=== PATIENT | male | born 1945 | race Caucasian/White ===

== ENCOUNTER → 2018-01-31 | Outpatient (CLI) | payer OTHER, MEDICARE ==
[2018-01-31 15:52] LABS: BASO % 0.2 %; BASO ABS # 0.02 K/uL (0-0.2); EOS % 2.3 %; HEMATOCRIT 44.7 % (42-52); HEMOGLOBIN 14.3 g/dL (14.0-18.0); IG# 0.01 K/uL (0.00-0.02); LYMPH ABS # 1.85 K/uL (1.2-3.4); MEAN CORPUSCULAR HEMOGLOBIN 28.5 pg (25-34); MEAN PLATELET VOLUME 12.4 fL (7.4-10.4); MONO % 5.4 %; MONO ABS # 0.48 K/uL (0.11-0.59); NEUT ABS # 6.25 K/uL (1.4-6.5); PLATELET COUNT 169 K/uL (130-400); RED CELL DISTRIBUTION WIDTH CV 13.3 % (11.5-14.5); RED CELL DISTRIBUTION WIDTH SD 43.3 fL (36.4-46.3); WHITE BLOOD COUNT 8.81 K/uL (4.8-10.8)
[2018-01-31 15:58] LABS: INR 1.1 (0.9-1.1); PTT PATIENT 26.9 SECONDS (21.0-31.0)
--- NOTE | 2018-01-31 16:04 | DIAGNOSTIC IMAGING REPORT ---
CHEST 2 VIEWS ROUTINE HISTORY: 72 years-old Male PRE-OP TESTING preoperative exam. No acute chest complaints. COMPARISON: None available TECHNIQUE: PA and lateral views of the chest FINDINGS: Cardiac silhouette is mildly enlarged. Moderate hiatal hernia. No pneumothorax, pleural effusion, focal airspace consolidation or overt pulmonary edema. Degenerative changes are seen within the shoulders and spine. IMPRESSION: 1. Cardiomegaly without acute process. 2. Moderate hiatal hernia. The above report was generated using voice recognition software. It may contain grammatical, syntax or spelling errors. Electronically signed by: Addy Ibanez M.D. 01/31/2018 4:03 PM Dictated Date/Time: 01/31/2018 4:02 PM
[2018-01-31 16:09] LABS: ALBUMIN 3.9 gm/dl (3.4-5.0); BLOOD UREA NITROGEN 22 mg/dl (7-18); CALCIUM 9.2 mg/dl (8.5-10.1); CARBON DIOXIDE 29 mmol/L (21-32); CREATININE 1.17 mg/dl (0.60-1.40); GLUCOSE 138 mg/dl (70-99); SODIUM 139 mmol/L (136-145)
[2018-02-01 07:47] LABS: HEMOGLOBIN A1C 5.7 % (4.5-5.6)
== END | disposition home or self-care (01) ==
LOC: C.CPL 15:06
PROVIDERS: ATTEND Orthopaedic Surgery
DX: Z01.810 Encounter for preprocedural cardiovascular examination (principal); Z01.811 Encounter for preprocedural respiratory examination; Z01.812 Encounter for preprocedural laboratory examination; I51.7 Cardiomegaly; K44.9 Diaphragmatic hernia without obstruction or gangrene

== ENCOUNTER 2018-02-25 07:16 | Inpatient (IN) | payer OTHER, MEDICARE ==
--- NOTE | 2018-02-07 09:01 | HISTORY & PHYSICAL EXAMINATION ---
DATE OF ADMISSION: 02/25/2018 CHIEF COMPLAINT: Right knee pain. HISTORY OF PRESENT ILLNESS: Mr. Lama is a 72-year-old male with a 5-6 year history of right knee pain. The patient rates his pain as 7-8/10. He has pain with his daily activities. He has limited standing and walking tolerance. Pain is worse with weightbearing. The patient has had injections, home walking program, and NSAIDs over the years without relief. He has failed conservative treatment and is scheduled for right knee replacement. PAST MEDICAL HISTORY: Heart disease with stent placement, hypertension, hypercholesterolemia. He denies diabetes or DVT. PAST SURGICAL HISTORY: Hernia repair, tonsillectomy, and cardiac stent. SOCIAL HISTORY: The patient drinks 2 drinks per week. He denies tobacco use. He lives in a split-level home. He is and retired. FAMILY HISTORY: Negative for DVT. MEDICATIONS: Plavix 75 mg, lisinopril 10 mg, metoprolol 25 mg half tablet daily, aspirin 81 mg daily, rosuvastatin 10 mg daily. ALLERGIES: None. REVIEW OF SYSTEMS: See HPI. Ten other systems reviewed, all negative. PHYSICAL EXAMINATION: VITAL SIGNS: Height 5 foot 7, weight 230 pounds, BMI 36. GENERAL: This is a well-developed, well-nourished male, who is alert and oriented x3. Mood and affect are appropriate. HEENT: Normocephalic, atraumatic. Mucous membranes are moist and intact. NECK: Supple without lymphadenopathy. HEART: Regular rate and rhythm without murmurs, rubs, or gallops. LUNGS: Clear to auscultation without wheezes or rhonchi. ABDOMEN: Soft and nontender. Bowel sounds are equal and active. EXTREMITIES: No ecchymosis, redness, or warmth. Thigh and calf are soft and nontender. He has varus deformity. Range of motion is from 0-115 degrees with +1 laxity. He is neurovascularly intact with +5/5 strength. He has no effusion. He has no distal edema. X-RAY EXAMINATION: AP and lateral views show joint space narrowing and osteophyte formation. IMPRESSION: Degenerative joint disease, right knee. PLAN: The patient will be admitted for a right total knee arthroplasty with Dr. Kc. We will plan on aspirin and Plavix for DVT prophylaxis. The patient will have [facility] for home physical therapy upon discharge. PCP is Dr. Bonner at [place].
[2018-02-13 10:14] VITALS: BMI 36.0
[2018-02-25] VITALS (8 sets, daily range): BP systolic 116–194; BP diastolic 68–96; PULSE 51–81; TEMP 36.5–36.9; O2SAT 91–98; Ht 170.2 cm; Wt 106.8 kg
[~2018-02-25] VITALS: Ht 170.2 cm; Wt 106.8 kg
[2018-02-25] MEDS: TRANEXAMIC ACID INJ 1,000 MG x 2 Bags IV SCH ×4 (06:30→09:19)
--- NOTE | 2018-02-25 07:07 | History & Physical Bridge Note ---
H&P Re-Evaluation Bridge Note: I have examined the patient, reviewed the History & Physical and in the interval since the performance of the History & Physical I have noted the following changes of clinical significance: No changes noted
[~2018-02-25 07:16] MED LIST: ACETAMINOPHEN 500 MG TAB PO SCH; ASCO1CAP3 PO; ASPI81TA28 PO; CEFAZOLIN 2000MG IV PUSH 15 ML IV SCH; CHOL2000 PO; CLOP1TAB15 PO; COEN100C7 PO; CRS/10 PO; CeleBREX 200 MG CAP PO SCH; DEXAMETHASONE 4 MG TAB PO SCH; FAMOTIDINE 20 MG TAB PO SCH; FENTANYL CITRATE INJ 50 MCG/1 ML 2 ML VIAL ONE; GABAPENTIN 300 MG CAP PO SCH; GARL10007 PO; LACTATED RINGER'S 1000ML 1,000 ML IV SCH; LACTATED RINGER'S 1000ML 500 ML IV SCH; LISI-461 PO; METO25TA4 PO; METOCLOPRAMIDE HCL 10 MG TAB PO SCH; MIDAZOLAM HCL 1 MG/ML 2ML VIAL ONE; MULT-506 PO; ROPIVACAINE 5MG/ML 30 ML 150 MG, BUPIVACAINE 0.5% MPF INJ 30 ML, EpINEphrine HCL INJ 0.... INFIL SCH; VITA400C28 PO
[2018-02-25] MEDS ORDERED: BUPIVACAINE 0.25% 30 ML VIAL ONE (07:36)
[2018-02-25] MEDS ORDERED: BUPIVACAINE 0.5 % 5 MG/1 ML PF 10ML VIAL ONE (07:36)
[2018-02-25] MEDS ORDERED: PROPOFOL IV EMULSION 10 MG/ML 20 ML VIAL ONE (08:36)
[2018-02-25] MEDS ORDERED: ONDANSETRON INJ 2 MG/ML 2 ML VIAL ONE (08:36)
[2018-02-25] MEDS ORDERED: LIDOCAINE HCL 2% 2 ML VIAL (20MG/ML) ONE (08:36)
[2018-02-25] MEDS ORDERED: EpHEDrine SULFATE INJ 50 MG/ML AMP IV PRN (08:45)
[2018-02-25] MEDS ORDERED: FENTANYL CITRATE INJ 50 MCG/1 ML 2 ML VIAL IV PRN (08:45)
[2018-02-25] MEDS ORDERED: ATROPINE SULFATE 0.1 MG/ML 5ML SYR IV PRN (08:45)
[2018-02-25] MEDS ORDERED: ONDANSETRON INJ 2 MG/ML 2 ML VIAL IV PRN ×2 (08:45→11:30)
[2018-02-25] MEDS ORDERED: BACITRACIN 50000 UNIT VIAL ONE (09:16)
[2018-02-25] MEDS ORDERED: ORTHO JOINT ANESTHETIC ONE (09:16)
[2018-02-25] MEDS ORDERED: POVIDONE-IODINE OP SOLN 30 ML BTL ONE (09:16)
[2018-02-25] MEDS ORDERED: EpHEDrine SULFATE INJ 50 MG/ML AMP ONE (10:16)
[2018-02-25] MEDS ORDERED: SODIUM CHLORIDE 0.9% INJ 10 ML VIAL ONE (10:16)
--- NOTE | 2018-02-25 10:44 | [facility] Post Operative Brief Note ---
Immediate Operative Summary Operative Date February 25, 2018. Pre-Operative Diagnosis Degenerative Joint Disease, Right Knee Post-Operative Diagnosis Degenerative Joint Disease, Right Knee Procedure(s) Performed Right Total Knee Arthroplasty utilizing [employer] journey to patient match total knee arthroplasty size 6 6 femur 6 tibia 13 polyethylene [address] Kc [employer] Architect Surgeon(s) Lele Stoner PA-C, Dr Antoine Mondragon Estimated Blood Loss 5CC Findings Consistent with Post-Op Diagnosis Specimens A: Right Knee Bone and Tissue Anesthesia Type MAC Spinal Regional Complication(s) none Disposition Disposition: Recovery Room / PACU
--- NOTE | 2018-02-25 10:45 | [facility] Operative Report ---
Operative Report Operative Date February 25, 2018. Pre-Operative Diagnosis Degenerative Joint Disease, Right Knee Post-Operative Diagnosis Degenerative Joint Disease, Right Knee Procedure(s) Performed Right Total Knee Arthroplasty utilizing [employer] journey to patient match total knee arthroplasty size 6 6 femur 6 tibia 13 polyethylene [address] Kc Postpartum Rn Surgeon(s) Lele Stoner PA-C, Dr Antoine Mondragon Estimated Blood Loss 5CC Findings Patient did have intraoperative findings of bone the bone changes marginal Specimens A: Right Knee Bone and Tissue Anesthesia Type MAC Spinal Regional Complication(s) none Disposition Recovery Room / PACU Indications Patient presents after failed attempts at conservative management including physical therapy anti-inflammatories relative rest activity modification Visco supplementation corticosteroid injections patient failed CONSERVATIVE management the patient has crepitation effusion pseudo-ligamentous laxity palpable osteophytes is failed attempts at conservative management presents for total knee arthroplasty Description of Procedure After proper prepping and draping of the Right lower extremity anterior midline incision was made over the region of the extensor extensor mechanism after meticulous hemostasis was obtained and maintained in subcutaneous tissues a medial parapatellar incision was made The patella was subluxed lateralward the medial lateral gutter were cleaned from any hypertrophic synovitis and scar tissue of the distal femoral block was placed and the distal femoral osteotomy cut was made subsequently the chamfers anterior and posterior osteotomy cuts were made utilizing the 4-in-1 block the tibia was subsequently subluxed anteriorward medial and ateral meniscal remnants were excised in their entirety remnants of the anterior and posterior cruciate ligaments were excised in their entirety excellent exposure of the proximal tibia was obtained the tibial osteotomy guide was placed on the proximal tibial osteotomy cut was made once again the knee was irrigated with copious amounts of sterile saline solution the patella was subsequently everted lateralward thickened scar tissue around the patella was removed the patella was subsequently cut utilizing a freehand technique and was drilled prepared for final preparation and placement of patella socially flexion-extension gaps were checked and the equal and symmetric trials were placed to the appropriate femoral and tibial trials with poly-spacer being placed for equal flexion and extension gaps and full range of motion including extension to 0 and flexion to 140 the trial components after having been taken to recovery range of motion was subsequently removed meticulous hemostasis was obtained and maintained subsequently a knee block injection of joint cocktail including ropivacaine 0.5% 150 mg. Bupivacaine 0.5 % epinephrine 1-200,030 mL's toradol 30 mg dexamethasone 4 mg ketamine 10 mg clonidine 100 micrograms normal saline solution 30 mg was infiltrated into the soft tissues of the posterior knee medial lateral gutters and periosteal synovium special attention was paid to protect neurovascular structures at all times subsequently trial components having been removed the knee was irrigated with sterile saline solution. debris was removed the proximal tibia was subsequently prepared and was made ready for the placement of the tibial component tibial component was also cemented and tamped into position the femoral component was subsequently placed and cemented in the position the patellar component was subsequently cemented in position because hemostasis once again obtained and maintained wound having been thoroughly irrigated with debridement and debridement lavage was performed as well as a medial parapatellar incision closed with #1 Vicryl in interrupted fashion subcutaneous was closed with #2 Vicryl skin was closed with skin clips. PA-C was necessary for prepping and drapping as well as wound closure of deep fascia Sub cutaneous tissue and skin and was necessary for the case. A sterile compressive dressing was placed patient was taken to recovery in stable condition of report dictated by De I attest to the content of the Intraoperative Record and any orders documented therein. Any exceptions are noted below. I attest to the content of the Intraoperative Record and any orders documented therein. Any exceptions are noted below.
[2018-02-25] MEDS ORDERED: MAGNESIUM HYDROXIDE SUSP 30 ML UDC PO PRN (11:30)
[2018-02-25] MEDS ORDERED: KETOROLAC TROMETHAMINE 15 MG/ML VIAL IV. PRN (11:30)
[2018-02-25] MEDS ORDERED: BISACODYL 10 MG SUPP PR PRN (11:30)
[2018-02-25] MEDS ORDERED: TRAMADOL HCL 50 MG TAB PO PRN (11:30)
[2018-02-25] MEDS ORDERED: MoRPHine SULFATE 4 MG/ML 1 ML CARP\\VIAL IV PRN (11:30)
[2018-02-25] MEDS ORDERED: OXYCODONE HCL IR 5 MG TAB (IMMEDIATE RELEASE) PO PRN (11:30)
[2018-02-25] MEDS ORDERED: ALUMINUM/MAGNESIUM/SIMETH (MAALOX MAX) 30 ML UDC PO PRN (11:30)
[2018-02-25] MEDS ORDERED: ZOLPIDEM TARTRATE 5 MG TAB PO PRN (11:30)
[2018-02-25] MEDS ORDERED: SOD PHOSPHATE/SOD BIPHOSPHATE ENEMA 132 ML BTL PR PRN (11:30)
--- NOTE | 2018-02-25 12:01 | Anesthesiology Progress Note ---
Anesthesia Post Op Note Date & Time February 25, 2018 at 12:00 Vital Signs Pain Intensity: 0 Vital Signs Past 12 Hours Date Time Temp Pulse Resp B/P (MAP) Pulse Ox O2 Delivery O2 Flow Rate FiO2 02/25/18 11:55 36.8 50 18 147/81 98 Nasal Cannula 2 02/25/18 11:45 54 18 121/86 98 Nasal Cannula 2 02/25/18 11:35 64 18 126/75 100 Oxymask 10 02/25/18 11:26 36.7 63 16 130/69 99 Oxymask 10 02/25/18 07:58 36.6 59 20 194/96 96 Room Air Notes Mental Status: alert / awake / arousable, participated in evaluation Pt Amnestic to Procedure: Yes Nausea / Vomiting: adequately controlled Pain: adequately controlled Airway Patency, RR, SpO2: stable & adequate BP & HR: stable & adequate Hydration State: stable & adequate Anesthetic Complications: no major complications apparent
--- NOTE | 2018-02-25 12:08 | DIAGNOSTIC IMAGING REPORT ---
RIGHT KNEE 2 VIEWS History: Right total knee arthroplasty. Degenerative arthritis. Postop. FINDINGS: The patient is status post a right total knee arthroplasty. The hardware is intact. No fracture or dislocation. Surgical drains are in place. IMPRESSION: Right total knee arthroplasty. No evidence for hardware complication. Electronically signed by: Lalito Nino M.D. 02/25/2018 12:07 PM Dictated Date/Time: 02/25/2018 12:05 PM
[2018-02-25] MEDS ORDERED: MoRPHine SULFATE 10 MG/ML CARP/VIAL IV PRN ×2 (13:30)
[2018-02-25] MEDS: D5W AND 1/2NSS + 20MEQ KCL 1,000 ML IV SCH ×2 (14:04→23:37)
[2018-02-25] MEDS: ACETAMINOPHEN 500 MG TAB PO SCH ×2 (14:04→21:03)
[2018-02-25] MEDS: CEFAZOLIN IV 2,000 MG in SYRINGE 0 ML IV SCH (17:51)
[2018-02-25] MEDS ORDERED: SENNA 8.6 MG TAB PO SCH (21:00)
[2018-02-25] MEDS ORDERED: ROSUVASTATIN CALCIUM 10 MG TAB PO SCH (21:00)
[2018-02-25] MEDS: ASPIRIN 81 MG ECTAB PO SCH (21:02)
[2018-02-25] MEDS: DOCUSATE SODIUM 100 MG CAP PO SCH (21:02)
[2018-02-26] MEDS: CEFAZOLIN IV 2,000 MG in SYRINGE 0 ML IV SCH (01:34)
[2018-02-26 03:00] VITALS: BP 149/75; PULSE 58; TEMP 36.4; O2SAT 95
[2018-02-26] MEDS: ACETAMINOPHEN 500 MG TAB PO SCH (05:19)
[2018-02-26 07:04] LABS: HEMATOCRIT 36.8 % (42-52); MEAN CELL VOLUME 88.2 fL (80-100); MEAN CORPUSCULAR HEMOGLOBIN 28.8 pg (25-34); MEAN CORPUSCULAR HGB CONC 32.6 g/dl (32-36); MEAN PLATELET VOLUME 11.5 fL (7.4-10.4); PLATELET COUNT 165 K/uL (130-400); RED CELL DISTRIBUTION WIDTH CV 13.3 % (11.5-14.5); RED CELL DISTRIBUTION WIDTH SD 42.9 fL (36.4-46.3); WHITE BLOOD COUNT 17.08 K/uL (4.8-10.8)
[2018-02-26 07:12] LABS: INR 1.1 (0.9-1.1)
[2018-02-26 07:36] LABS: CALCIUM 8.6 mg/dl (8.5-10.1); CREATININE 1.03 mg/dl (0.60-1.40); POTASSIUM 4.9 mmol/L (3.5-5.1)
[2018-02-26 07:57] VITALS: BP 158/87; PULSE 54; TEMP 36.4; O2SAT 98
--- NOTE | 2018-02-26 08:01 | Orthopedic Progress Note ---
Orthopedic Progress Note Date of Service February 26, 2018. Subjective Post OP Day: 1 Reports: feeling well, Denies: chest pain, SOB, nausea / vomiting, light headedness, calf pain Objective calves soft nontender, N/V intact, capillary refill less than 2 sec., dressing C /D/I, A&O x3, toes mobile, hemovac drainage (50/250CC PER SHIFT) Date Time Temp Pulse Resp B/P (MAP) Pulse Ox O2 Delivery O2 Flow Rate FiO2 02/26/18 07:57 36.4 54 16 158/87 (110) 98 Room Air 02/26/18 03:00 36.4 58 14 149/75 (99) 95 Room Air 02/25/18 23:00 36.5 53 16 136/76 (96) 95 Room Air 02/25/18 20:06 36.9 69 16 116/68 (84) 91 Room Air 02/25/18 19:25 Room Air 02/25/18 15:44 Room Air 02/25/18 15:18 36.7 72 16 127/71 (89) 92 Room Air 02/25/18 14:07 36.8 81 16 136/85 (102) 95 Room Air 02/25/18 13:15 56 17 146/88 (107) 97 02/25/18 12:41 51 16 151/75 (100) 96 Nasal Cannula 2.0 02/25/18 12:15 36.7 52 16 138/73 (94) 98 Nasal Cannula 2.0 02/25/18 12:15 Nasal Cannula 2.0 02/25/18 12:15 Nasal Cannula 2.0 02/25/18 11:55 36.8 50 18 147/81 98 Nasal Cannula 2 02/25/18 11:45 54 18 121/86 98 Nasal Cannula 2 02/25/18 11:35 64 18 126/75 100 Oxymask 10 02/25/18 11:26 36.7 63 16 130/69 99 Oxymask 10 Laboratory Results 24 Hours: Test 02/26/18 06:43 Hematocrit 36.8 % Hemoglobin 12.0 g/dL Prothromb Time International Ratio 1.1 Prothrombin Time 11.1 SECONDS Assessment & Plan Assessment: POD#1 SP RIGHT TKA Plan: PT/OT DVT PROPH- ASA 81MG BID (CHRONIC PLAVIX) PAIN MANAGEMENT- RASHAD, TYLENOL DC PLANNING- POSSIBLE DC HOME TODAY IF TOLERATES PT AND PAIN CONTROLLED KEEP DRESSING/DRAIN INTACT- [facility] TO DC IN AM IF GOING HOME.
[2018-02-26] MEDS ORDERED: CLB200 PO (08:05)
[2018-02-26] MEDS ORDERED: RXC5 PO (08:05)
[2018-02-26] MEDS ORDERED: ASPI81TA28 PO (08:05)
[2018-02-26] MEDS ORDERED: SENN-61 PO (08:05)
[2018-02-26] MEDS ORDERED: ONDA-170 PO (08:05)
[2018-02-26] MEDS ORDERED: ACET-24 PO (08:05)
--- NOTE | 2018-02-26 08:07 | Discharge Instructions ---
Discharge Instructions Date of Service February 26, 2018. Admission Reason for Admission: Right Knee Osteoarthritis Discharge Discharge Diagnosis / Problem: SP RIGHT TKA Discharge Goals Goal(s): Decrease discomfort, Improve function, Increase independence Activity Recommendations Activity Limitations: per Instructions/Follow-up section . Instructions / Follow-Up Instructions / Follow-Up ACTIVITY RECOMMENDATIONS: SELF CARE INSTRUCTIONS AFTER TOTAL KNEE REPLACEMENT A. You may need to continue a physical therapy program after discharge from the hospital. There are several options available to you. Your doctor will assist you in selecting the best one for you. 1. An out-patient facility 2 to 3 times a week for therapy or home therapy. 2. Continue working on all exercises taught to you in the hospital. Your goals should be to increase bending of your knee to 90 degrees and beyond and to fully straighten your knee. B. You may progress at your own pace from walking with a walker or crutches to a cane; then to no assistive devices. C. Make walking a part of your daily routine. Be up as much as comfortable with rest periods throughout the day. Rest with leg elevation is very important. Use the ice wrap frequently for the first 3-4 weeks. D. There are no restrictions on activities. You may ride in a car, shop, participate in manager target and all social activities. E. Wear the long elastic stockings (BEVERLY hose) 20 hours a day for 2 weeks after surgery. They can be removed several times a day for laundering and for a bath. F. You may shower, no tub baths until cleared by your doctor. SPECIAL CARE INSTRUCTIONS: VERY IMPORTANT TO READ AND REVIEW A. There are a few signs you need to watch for after you are home. Call [facility] if you notice any of the followin. Increased severe knee pain. Some pain is expected especially when you exercise. 2. Increased swelling in your leg or knee; pain or swelling of the calf muscle in either lower leg. 3. Any fluid drainage from the incision. 4. Shortness of breath or chest pain. B. Please call [facility] at if you have any concerns or questions about your operation or recovery. The doctor or his nurse will return your call promptly. C. You must take antibiotics before dental work, bladder, bowel or other surgery. Your doctor will provide you with a permanent care to carry describing this precaution. IMPORTANT: * REMEMBER TO TAKE ASPIRIN, 81 MG, TWICE DAILY FOR 4 WEEKS UNLESS OTHERWISE DIRECTED. THIS IS YOUR BLOOD THINNER. * HIGH RISK PATIENTS MAY BE PRESCRIBED A STRONGER BLOOD THINNER. THIS WILL BE PROVIDED AT DISCHARGE. * CALL IF INCREASED PAIN, REDNESS, DRAINAGE OR FEVER GREATER THAT 101. * WEAR BEVERLY HOSE 20 HOURS PER DAY FOR 2 WEEKS. * DERMABOND Prineo- This is a mesh tape dressing that is covered with glue. It should remain in place until the incision is properly healed, usually 10-14 days. This dressing is designed to naturally slough off. You may trim the excess mesh tape as it peels off. Incision may be briefly wet in a shower. Dry immediately by blotting with a clean, dry towel. Do not bath or swim until instructed by your doctor. Do not scratch, rub, or pick at the dressing. Do not apply any topical ointments or lotions until dressing is completely removed and/or instructed by your doctor. There may be a small piece of suture material at one end of your incision. Do not pull or trim this. If it is bothersome or catching on clothing, you may cover it with a band-aid. FOLLOW UP VISIT: If appointment is not already scheduled: Please call [facility] to make a follow-up appointment for 2 weeks after your surgery at . Current Hospital Diet Patient's current hospital diet: Regular Diet Discharge Diet Recommended Diet: Regular Diet Procedures Procedures Performed: Right Total Knee Arthroplasty utilizing [employer] journey to patient match total knee arthroplasty size 6 6 femur 6 tibia 13 polyethylene 32 oval patella Pending Studies Studies pending at discharge: no Laboratory Results Hemoglobin A1c Test 01/31/18 15:13 Range/Units Estimated Average Glucose 117 mg/dl Hemoglobin A1c 5.7 H 4.5-5.6 % Medical Emergencies . Who to Call and When: Medical Emergencies: If at any time you feel your situation is an emergency, please call 911 immediately. . Non-Emergent Contact Non-Emergency issues call your: Surgeon . "Provider Documentation" section prepared by Aura Newberry. .
[2018-02-26] MEDS: ASPIRIN 81 MG ECTAB PO SCH (08:50)
[2018-02-26] MEDS: DOCUSATE SODIUM 100 MG CAP PO SCH (08:50)
[2018-02-26 08:58] VITALS: PULSE 88
[2018-02-26] MEDS ORDERED: ASCORBIC ACID 500 MG TAB PO SCH (09:00)
[2018-02-26] MEDS ORDERED: CLOPIDOGREL BISULFATE 75 MG TAB PO SCH (09:00)
[2018-02-26] MEDS ORDERED: PANTOprazole SOD 40 MG TAB PO SCH (09:00)
[2018-02-26] MEDS ORDERED: MULTIVITAMIN TAB PO SCH (09:00)
[2018-02-26] MEDS ORDERED: METOPROLOL SUCC 25MG EXT REL TAB PO SCH (09:00)
[2018-02-26] MEDS ORDERED: ASPIRIN 81 MG ECTAB PO SCH (09:00)
[2018-02-26] MEDS: D5W AND 1/2NSS + 20MEQ KCL 1,000 ML IV SCH (10:00)
[2018-02-26 10:41] VITALS: BP 158/87; PULSE 88; TEMP 36.4; O2SAT 98
--- NOTE | 2018-02-26 18:26 | Discharge Summary ---
Orthopedic Discharge Summary Admission Date/Reason February 25, 2018 at 08:00 Right Knee Osteoarthritis. Discharge Date/Disposition February 26, 2018 Home with services Diagnosis Principal Diagnosis: right knee osteoarthritis Procedure(s) Performed Right Total Knee Arthroplasty utilizing [facility] journey to patient match total knee arthroplasty size 6 6 femur 6 tibia 13 polyethylene 32 oval patella Consultations NONE Medication Reconciliation New Medications: Ondansetron Hcl (Zofran) 8 Mg Tab 8 MG PO Q8 PRN for Nausea, #20 TAB Acetaminophen (Sb Non-Aspirin Extra Stre) 500 Mg Tab 1000 MG PO Q8H for 30 Days, #180 TAB Celecoxib (Celebrex) 200 Mg Cap 200 MG PO BID, #60 CAP Oxycodone HCl (Oxycodone HCl) 5 Mg Tab 5-10 MG PO Q4H PRN for Pain, #60 TAB Senna (Senokot) 8.6 Mg Tab 17.2 MG PO HS for 14 Days, #28 TAB Changed Medications: Aspirin (Aspirin Ec) 81 Mg Tab 81 MG PO BID for 30 Days, #60 TAB (Changed from: QAM) Continued Medications: Ascorbic Acid (Vitamin C) 500 Mg Cap 500 MG PO QAM Clopidogrel (Plavix) 75 Mg Tab 75 MG PO QAM, TAB Coenzyme Q10 (Ubidecarenone) (Coq10) 100 Mg Cap 100 MG PO QAM Garlic (Garlic) 1,000 Mg Cap 1000 MG PO QAM Lisinopril (Zestril) 10 Mg Tab 10 MG PO QAM, TAB Metoprolol Succinate (Toprol Xl) 25 Mg Tabcr 12.5 MG PO QAM, #30 TAB Rosuvastatin Calcium (Crestor) 10 Mg Tab 10 MG PO QPM, TAB Vitamin E (Alph-E) 400 Unit Cap 400 UNITS PO QAM Admission Physical Exam As per Admitting History & Physical. Hospital Course Patient was a same day admission after undergoing a successful right TKA. He tolerated the procedure well. Post-operatively, his activity was progressed and well tolerated. Please refer to daily progress notes and PT notes for complete details. After exam on 02/26/18, patient felt to be stable for discharge home with HHPT. Patient will f/u in the office in 2 weeks for further evaluation including x-rays and incision check, sooner if having any issues or concerns. Below are pertinent labs/studies during their hospital stay: Last Resulted CBC 02/26/18 06:43 Last Resulted BMP 02/26/18 06:43 Test 02/26/18 06:43 Hematocrit 36.8 % Hemoglobin 12.0 g/dL Prothromb Time International Ratio 1.1 Prothrombin Time 11.1 SECONDS Discharge Instructions ACTIVITY RECOMMENDATIONS: SELF CARE INSTRUCTIONS AFTER TOTAL KNEE REPLACEMENT A. You may need to continue a physical therapy program after discharge from the hospital. There are several options available to you. Your doctor will assist you in selecting the best one for you. 1. An out-patient facility 2 to 3 times a week for therapy or home therapy. 2. Continue working on all exercises taught to you in the hospital. Your goals should be to increase bending of your knee to 90 degrees and beyond and to fully straighten your knee. B. You may progress at your own pace from walking with a walker or crutches to a cane; then to no assistive devices. C. Make walking a part of your daily routine. Be up as much as comfortable with rest periods throughout the day. Rest with leg elevation is very important. Use the ice wrap frequently for the first 3-4 weeks. D. There are no restrictions on activities. You may ride in a car, shop, participate in drywall applicator and all social activities. E. Wear the long elastic stockings (BEVERLY hose) 20 hours a day for 2 weeks after surgery. They can be removed several times a day for laundering and for a bath. F. You may shower, no tub baths until cleared by your doctor. SPECIAL CARE INSTRUCTIONS: VERY IMPORTANT TO READ AND REVIEW A. There are a few signs you need to watch for after you are home. Call [facility] if you notice any of the followin. Increased severe knee pain. Some pain is expected especially when you exercise. 2. Increased swelling in your leg or knee; pain or swelling of the calf muscle in either lower leg. 3. Any fluid drainage from the incision. 4. Shortness of breath or chest pain. B. Please call [facility] at if you have any concerns or questions about your operation or recovery. The doctor or his nurse will return your call promptly. C. You must take antibiotics before dental work, bladder, bowel or other surgery. Your doctor will provide you with a permanent care to carry describing this precaution. IMPORTANT: * REMEMBER TO TAKE ASPIRIN, 81 MG, TWICE DAILY FOR 4 WEEKS UNLESS OTHERWISE DIRECTED. THIS IS YOUR BLOOD THINNER. * HIGH RISK PATIENTS MAY BE PRESCRIBED A STRONGER BLOOD THINNER. THIS WILL BE PROVIDED AT DISCHARGE. * CALL IF INCREASED PAIN, REDNESS, DRAINAGE OR FEVER GREATER THAT 101. * WEAR BEVERLY HOSE 20 HOURS PER DAY FOR 2 WEEKS. * DERMABOND Prineo- This is a mesh tape dressing that is covered with glue. It should remain in place until the incision is properly healed, usually 10-14 days. This dressing is designed to naturally slough off. You may trim the excess mesh tape as it peels off. Incision may be briefly wet in a shower. Dry immediately by blotting with a clean, dry towel. Do not bath or swim until instructed by your doctor. Do not scratch, rub, or pick at the dressing. Do not apply any topical ointments or lotions until dressing is completely removed and/or instructed by your doctor. There may be a small piece of suture material at one end of your incision. Do not pull or trim this. If it is bothersome or catching on clothing, you may cover it with a band-aid. FOLLOW UP VISIT: If appointment is not already scheduled: Please call [facility] to make a follow-up appointment for 2 weeks after your surgery at .
[2018-02-26] MEDS ORDERED: CeleBREX 200 MG CAP PO SCH (21:00)
== END 2018-02-26 13:27 | disposition home health service (06) | DRG 470 ==
LOC: C.ACU 07:16 → C.3E 08:00 → ENRESERV 11:50
PROVIDERS: ADMIT Orthopaedic Surgery; ATTEND Orthopaedic Surgery
PROC: 0SRC0J9 Replacement of Right Knee Joint with Synthetic Substitute, Cemented, Open Approach (ICD-10-PCS; principal; 2018-02-25 09:45)
DX: M17.11 Unilateral primary osteoarthritis, right knee (principal); E78.00 Pure hypercholesterolemia, unspecified; I11.9 Hypertensive heart disease without heart failure; I25.10 Atherosclerotic heart disease of native coronary artery without angina pectoris; Z79.899 Other long term (current) drug therapy; Z79.02 Long term (current) use of antithrombotics/antiplatelets; Z79.82 Long term (current) use of aspirin; Z95.5 Presence of coronary angioplasty implant and graft